=== PATIENT | female | born 1995 ===

== ENCOUNTER 2018-07-04 00:39 | Emergency (ER) | payer BC ==
[2018-07-04 01:14] VITALS: BMI 27.4
[2018-07-04 01:15] VITALS: O2SAT 97
--- NOTE | 2018-07-04 01:55 | ED PDOC ---
HPI: CCC, URI, Sore Throat Time Seen by Provider: 07/04/18 01:34 Chief Complaint (Nursing): ENT Problem Chief Complaint (Provider): Cough, chest tightness History Per: Patient Onset/Duration Of Symptoms: Days Current Symptoms Are (Timing): Still Present Sick Contacts (Context): None Additional Complaint(s): 23 y/o female with no significant PMHx presents to the ED for evaluation of chest pain associated with shortness of breath and a fever. Patient reports of initially experiencing chest tightness described as "pressure-like" approximately 6 days ago. Patient states shortness of breath and fever developed earlier today. Otherwise, patient denies leg swelling, cough, getting this year's flu vaccination, known sick contacts and abdominal pain. PMD: Lorena Bauer. Past Medical History Reviewed: Historical Data, Nursing Documentation, Vital Signs Vital Signs: Last Vital Signs Temp 99.9 F H 07/04/18 01:14 Pulse 97 H 07/04/18 01:14 Resp 18 07/04/18 01:14 BP 123/79 07/04/18 01:14 Pulse Ox 97 07/04/18 01:14 - Medical History PMH: No Chronic Diseases - Surgical History Surgical History: No Surg Hx - Family History Family History: States: No Known Family Hx - Immunization History Hx Influenza Vaccination: No - Home Medications Home Medications: Ambulatory Orders Medication Instructions Recorded Ibuprofen [Motrin] 400 mg PO Q6 #20 tab 07/04/18 - Allergies Allergies/Adverse Reactions: Allergies Allergy/AdvReac Type Severity Reaction Status Date / Time No Known Allergies Allergy Verified 07/04/18 01:13 Review of Systems ROS Statement: Except As Marked, All Systems Reviewed And Found Negative Constitutional: Positive for: Fever Cardiovascular: Positive for: Chest Pain Respiratory: Positive for: Shortness of Breath. Negative for: Cough Gastrointestinal: Negative for: Abdominal Pain Physical Exam - Reviewed Nursing Documentation Reviewed: Yes Vital Signs Reviewed: Yes - Physical Exam Appears: Positive for: No Acute Distress Head Exam: Positive for: ATRAUMATIC, NORMOCEPHALIC Skin: Positive for: Normal Color, Warm, Dry Eye Exam: Positive for: Normal appearance, EOMI, PERRL Neck: Positive for: Normal, Painless ROM, Supple Cardiovascular/Chest: Positive for: Regular Rate, Rhythm. Negative for: Murmur Respiratory: Positive for: Normal Breath Sounds. Negative for: Respiratory Distress Gastrointestinal/Abdominal: Positive for: Normal Exam, Soft. Negative for: Tenderness Back: Positive for: Normal Inspection. Negative for: L CVA Tenderness, R CVA Tenderness Extremity: Positive for: Normal ROM. Negative for: Deformity Neurological/Psych: Positive for: Awake, Alert, Oriented (x3). Negative for: Motor/Sensory Deficits - ECG ECG: Positive for: Interpreted By Me, Viewed By Me ECG Rhythm: Positive for: Normal QRS, Normal ST Segment, Sinus Rhythm. Negative for: ST/T Changes Rate: 93 (\\) O2 Sat by Pulse Oximetry: 97 (RA) Pulse Ox Interpretation: Normal - Radiology X-Ray: Interpreted by Me, Viewed By Me X-Ray Interpretation: No Acute Disease - Progress Re-evaluation Time: 03:33 Condition: Re-examined, Improved Medical Decision Making Medical Decision Making: Time: 0141 Impression: Fever and chest tightness Differentials include but not limited to pneumonia and flu Plan: -- EKG -- ED Urine -- CXR Two views -- Influenza A B Scribe Attestation: Documented by Serenity Jauregui, acting as a scribe for Maren Kaplan MD. Provider Scribe Attestation: All medical record entries made by the Scribe were at my direction and personally dictated by me. I have reviewed the chart and agree that the record accurately reflects my personal performance of the history, physical exam, medical decision making, and the department course for this patient. I have also personally directed, reviewed, and agree with the discharge instructions and disposition. Disposition - Clinical Impression Clinical Impression: Chest pain, Fever - Patient ED Disposition Is Patient to be Admitted: No Doctor Will See Patient In The: Office Counseled Patient/Family Regarding: Studies Performed, Diagnosis, Need For Followup - Disposition Disposition: Routine/Home Disposition Time: 03:35 Condition: GOOD Additional Instructions: KATHLEEN MCARTHUR, thank you for letting us take care of you today. Your provider was Maren Kaplan MD and you were treated for CHEST TIGHTNESS, POSS FEVER. The emergency medical care you received today was directed at your acute symptoms. If you were prescribed any medication, please fill it and take as directed. It may take several days for your symptoms to resolve. Return to the Emergency Department if your symptoms worsen, do not improve, or if you have any other problems. Please contact your doctor or call one of the physicians/clinics you have been referred to that are listed on the Patient Visit Information form that is included in your discharge packet. Bring any paperwork you were given at discharge with you along with any medications you are taking to your follow up visit. Our treatment cannot replace ongoing medical care by a primary care provider outside of the emergency department. Thank you for allowing the [facility] team to be part of your care today. If you had an X-Ray or CT scan: A Radiologist will review the ED reading if any change in treatment is needed we will contact you. Prescriptions: Ibuprofen [Motrin] 400 mg PO Q6 #20 tab Instructions: Chest Pain (DC), Fever, Adult (DC) Forms: [employer] (Bhutanese)
[2018-07-04 03:35] VITALS: PULSE 93
[2018-07-04 03:36] VITALS: TEMP 100.4
[2018-07-04 04:00] VITALS: BP 110/76; RESP 16
--- NOTE | 2018-07-04 09:03 | RAD ---
Date of service: 07/04/2018 HISTORY: chest pain fever COMPARISON: No prior. TECHNIQUE: Chest PA and lateral views FINDINGS: LUNGS: No active pulmonary disease. PLEURA: No significant pleural effusion identified. No pneumothorax apparent. CARDIOVASCULAR: No aortic atherosclerotic calcification present. Normal cardiac size. No pulmonary vascular congestion. OSSEOUS STRUCTURES: No significant abnormalities. VISUALIZED UPPER ABDOMEN: Normal. OTHER FINDINGS: None. IMPRESSION: No active disease.
--- NOTE | 2018-07-04 09:24 | CARD ---
APPROVED REPORT Date of service: 07/04/2018 EKG Measurement Heart [id number] <Conclusion> Normal sinus rhythm Normal ECG
== END 2018-07-04 03:56 | disposition home or self-care (01) ==
LOC: H.ER 00:39
DX: R50.9 Fever, unspecified (principal); R07.89 Other chest pain